=== PATIENT | male | born 1995 | race African-American/Black ===

== ENCOUNTER 2016-10-30 14:50 | Emergency (ER) | payer SELFPAY ==
[2016-10-30 14:59] VITALS: BP 120/65; PULSE 82; TEMP 97.7
[2016-10-30 15:00] VITALS: BMI 21.5
--- NOTE | 2016-10-30 15:57 | DIRPT ---
CLINICAL DATA: RIGHT hand pain at the fourth fifth metacarpal phalangeal joint. Basketball injury. EXAM: RIGHT HAND - COMPLETE 3+ VIEW COMPARISON: None. FINDINGS: No evidence of fracture of the carpal or metacarpal bones. Radiocarpal joint is intact. Phalanges are normal. No soft tissue injury. IMPRESSION: No fracture or dislocation. Electronically Signed By: Jr Elias M.D. On: 10/30/2016 15:55
--- NOTE | 2016-10-30 16:13 | EDPRACDOC ---
- General Information Chief Complaint: Hand Pain Stated Complaint: INJURED RT HAND PLAYING BASKETBALL Time Seen by Provider: 10/30/16 15:14 Information Source: Patient Mode of Arrival: Car Home Medications: Home Medications No Home Medications 10/30/16 Allergies/Adverse Reactions: Allergies Allergy/AdvReac Type Severity Reaction Status Date / Time amoxicillin [Amoxicillin] Allergy Rash-Locali Verified 10/30/16 15:59 zed Penicillins Allergy Rash-Locali Verified 10/30/16 15:59 zed - History of Present Illness Onset: 1 day HPI: PT PRESENTS TODAY WITH LEFT 5TH FINGER PAIN AFTER JAMMING IT WHILE PLAYING BASKETBALL LAST NIGHT. PT STATES HE IS UNABLE TO FULL BEND HIS FINGER. NO OTHER INJURY REPORTED. Location: Reports: Right, 5th Finger Mechanism: Reports: Blunt Trauma Circumstances: Reports: Sporting Associated Signs & Symptoms: Reports: None ED Past Medical History - History Reviewed Yes Nurses notes reviewed and agree except as marked - Patient Medical History Psychological History: Denies: Depression Surgical History: Reports: Tonsillectomy/Adnoidectomy - Social Medical History Smoking Status: Heavy tobacco smoker (5 or more cigarettes/day or daily pipe/ cigar) EDM Review of Systems - Review of Systems ROS Negative Except as Marked: Yes All systems reviewed and were negative except as marked Constitutional: No Symptoms Reported Neurological: No Symptoms Reported Musculoskeletal: Hand Integumentary: No Symptoms Reported - Physical Exam Constitutional: Alert (Awake), No apparent distress Oriented to: Time, Person, Place Last recorded Vital Signs: Last Vital Signs Temp 97.7 F 10/30/16 14:59 Pulse 82 10/30/16 14:59 Resp 20 10/30/16 14:59 BP 120/65 10/30/16 14:59 Pulse Ox 97 10/30/16 14:59 Oxygen Pulse Oxygen Saturation 97 O2 Device Oxygen Flow Rate Fraction of Inspired Oxygen ( FIO2) - HEENT Head: Normal Eye Exam: Normal Neck: Normal, Denies Pain - Respiratory/Cardiovascular Respiratory: Normal - CTA Cardiovascular: Normal - GI Palpation: Normal Tenderness: Non tender - Musculoskeletal Back: Normal Extremities: Other (NOTED SWELLING TO RIGHT 5TH FINGER AT THE PIP JOINT W/OUT APPARENT DEFORMITY; CAP REFILL < 1) - Integumentary Skin: Normal Lymphatics: Normal - Neurologic Cerebellar: Normal Mood Description: Normal Thought: Coherent Perception: Normal ED Hand Problem Physical Exam - Musculoskeletal Hand: Normal Wrist: Normal Digit: Swelling, Limited ROM, Moderate Tenderness Digit Strength: Flexion (DECREASED SLIGHTLY D/T SWELLING OF THE CAPSULE) Nail: Normal Nailbed: Normal Soft Tissue: Normal Distal Function/Circulation: Normal - Integumentary Skin: Normal Lymphatics: Normal ED Procedures - Splinting 1st splint Location: RIGHT 5TH FINGER Pre-Made Type: FINGER SPLINT Pre-Proc Neuro Vasc Exam: normal Post-Proc Neuro Vasc Exam: normal Decision Time to Discharge: 16:14 - Departure Disposition: Home Condition: Good Final Diagnosis: Joint capsule rupture Instructions: RICE: Routine Care for Injuries Education/Counseling Given To: Patient Education/Counseling Given Regarding: Diagnosis, Treatment, Follow Up Referrals: None,No Provider [Primary Care Provider] - One Week Tim Jarvis MD [Staff Physician] - One Week Prescriptions: No Action No Home Medications 0 NA DIR #0 info Additional Instructions: IBUPROFEN NEEDED FOR PAIN. WEAR SPLINT MUCH POSSIBLE. IF SYMPTOMS PERSIST FOR MORE THAN 1 WEEK, FOLLOW UP WITH ORTHO.
== END 2016-10-30 16:20 | disposition home or self-care (01) ==
LOC: EDMC 14:50
DX: T14.8 Other injury of unspecified body region (principal); X58.XXXA Exposure to other specified factors, initial encounter; Y93.67 Activity, basketball
CPT/HCPCS: 29130; 99282